=== PATIENT | male | born 1985 | race Hispanic/Latino ===

== ENCOUNTER 2024-07-02 16:15 | Inpatient (IN) | payer OTHER ==
[2024-07-02] MEDS ORDERED: ONDANSETRON 4 MG/2 ML VIAL ONE ×2 (17:05→20:38)
[2024-07-02] MEDS ORDERED: MORPHINE 4 MG/ML SYR ONE (17:05)
[2024-07-02] MEDS ORDERED: NA CHLORIDE 0.9% 1,000 ML ONE (17:05)
[2024-07-02 17:12] LABS: Absolute Lymphocytes (CBC) 0.5 K/uL (0.7-4.9); Absolute Monocytes 0.4 K/uL (0.1-1.3); Absolute Neutrophil 11.3 K/uL (1.8-8.0); Basophils % 0.1 % (0-1.3); Hematocrit 43.5 % (39.6-49.0); Hemoglobin 14.8 g/dL (13.6-17.9); Lymphocytes % 4.4 % (15.3-44.8); MCH 31.8 pg (27.0-35.0); MCHC 34.1 g/dL (32.0-36.0); MCV 93.3 fL (80-100); MPV 7.6 fL (7.6-11.3); Monocytes % 3.2 % (3.3-12.3); Neutrophils % 92.3 % (41.7-73.7); Platelets 234 thou/uL (152-406); RBC Red Blood Cell Count 4.66 M/uL (4.33-5.43); Red Cell Distribution Width 13.1 % (12.1-15.2)
--- NOTE | 2024-07-02 17:25 | RAD REPORT ---
Abdomen Exam Limited: 07/02/2024 5:13 PM CLINICAL HISTORY: Abdominal pain. STUDY: Limited right upper quadrant ultrasound of abdomen. COMPARISON: None. FINDINGS: The gallbladder is distended with a stone at the gallbladder neck. A positive sonographic Hernandez's si gn is noted. The common bile duct is normal in caliber at 4 mm. The gallbladder wall is normal in caliber. IMPRESSION: Cholelithiasis with stone impacted at the gallbladder neck and positive sonographic Hernandez sign. The gallbladder wall is normal in thickness, these findings remain concerning for early acute cholecystitis.
[2024-07-02 17:26] LABS: Albumin 3.9 g/dL (3.4-5.0); Albumin/Globulin Ratio 1.1 (1.1-1.8); Anion Gap 9.7 mEq/L (5.0-15.0); Bilirubin Total 0.7 mg/dL (0.2-1.0); Globulin 3.4 g/dL (2.3-3.5); Potassium 3.7 mEq/L (3.5-5.1); Protein, Total 7.3 g/dL (6.4-8.2)
--- NOTE | 2024-07-02 17:50 | RAD REPORT ---
EXAMINATION: CT ABDOMEN AND PELVIS WITH CONTRAST CLINICAL INDICATION: Male, 39 years old. Right upper quadrant right lower quadrant tenderness to palp ation TECHNIQUE: CT abdomen and pelvis was performed, after the administration of IV contrast, as [facility]. Axial, sagittal and coronal reconstructions were obtained. One or more of the following dose reduction techniques were used: Automated exposure control, adjustment of the mA and/o r kV according to patient size, and/or iterative reconstruction. Unless otherwise specified, incidental findings do not require dedicated imaging follow-up. [id number]. COMPARISON: Same day ultrasound FINDINGS: LOWER CHEST: The visualized lung bases are clear. LIVER: Hepatic steatosis. GALLBLADDER/BILE DUCT: Distended gallbladder with stone near the gallbladder neck. Common bile duct i s normal in caliber.?No pericholecystic inflammatory changes are identified. PANCREAS: No mass, ductal dilation, or josé miguel-pancreatic fluid. SPLEEN: Normal size. No focal lesion. ADRENALS: Normal; no mass. KIDNEYS AND URETERS: Normal size and contour. No hydronephrosis. URINARY BLADDER: Normal contour. GASTROINTESTINAL TRACT: Stomach is non-dilated. Small bowel has normal course and caliber. No colonic wall thickening or pericolonic inflammatory changes. Normal appendix. PERITONEUM: No ascites. LYMPH NODES: No lymphadenopathy. ABDOMINAL AORTA AND OTHER VESSELS: Normal caliber aorta and IVC. REPRODUCTIVE ORGANS: No pathologic process MUSCULOSKELETAL: No acute or suspicious osseous abnormality. ADDITIONAL FINDINGS: None. IMPRESSION: Distended gallbladder with stone at the gallbladder neck. Though no pericholecystic inflammatory holcomb ges are present, this still could represent early or mild acute cholecystitis. The common bile duct is normal caliber.
--- NOTE | 2024-07-02 17:57 | ER ---
Nurse's Notes [facility] Name: Branden Gregorio Age: 39 yrs Sex: Male : 1985 Arrival Date: 07/02/2024 Time: 16:15 Bed 14 Private MD: Diagnosis: Cholecystitis, unspecified Presentation: 07/02 16:23 Chief complaint: Patient states: epigastric pain that began this morning, reports aa5 nausea and vomiting. Coronavirus screen: nausea, vomiting. Ebola Screen: Patient denies travel to an Ebola-affected area in the 21 days before illness onset. Initial Sepsis Screen: Does the patient meet any 2 criteria? No. Patient's initial sepsis screen is negative. Does the patient have a suspected source of infection? No. Patient's initial sepsis screen is negative. Risk Assessment: Do you want to hurt yourself or someone else? Patient reports no desire to harm self or others. Onset of symptoms was June 2024. 16:23 Acuity: SHAYLEE 3 aa5 16:23 Method Of Arrival: Ambulatory aa5 Historical: - Allergies: 16:25 No Known Allergies; aa5 - Home Meds: 16:25 None [Active]; aa5 - PMHx: 16:25 None; aa5 - PSHx: 16:25 None; aa5 - Immunization history:: Adult Immunizations unknown. - Infectious Disease History:: Denies. - Social history:: Smoking status: Patient denies any tobacco usage or history of. Screenin:33 Abuse screen: Denies threats or abuse. Denies injuries from another. Nutritional ph screening: No deficits noted. Tuberculosis screening: No symptoms or risk factors identified. 19:15 [facility] ED Fall Risk Assessment (Adult) History of falling in the last 3 months, rg5 including since admission No falls in past 3 months (0 pts) Confusion or Disorientation No (0 pts) Intoxicated or Sedated No (0 pts) Impaired Gait No (0 pts) Mobility Assist Device Used No (0 pt) Altered Elimination No (0 pt) Score/Fall Risk Level 0 - 2 = Low Risk Oriented to surroundings, Maintained a safe environment, Hourly rounding (assess needs \T\ fall precautionary measures) done. Assessment: 18:31 General: Appears in no apparent distress. uncomfortable, Behavior is calm, cooperative, ph appropriate for age. Pain: Complains of pain in epigastric area and right upper quadrant Pain radiates to back. Neuro: Level of Consciousness is awake, alert, obeys commands, Oriented to person, place, time, situation. Cardiovascular: Capillary refill < 3 seconds in bilateral fingers Patient's skin is warm and dry. Respiratory: Airway is patent Respiratory effort is even, unlabored, Respiratory pattern is regular, symmetrical. GI: Abd is soft X 4 quads Abdomen is tender to palpation in right upper quadrant. GI: Reports diarrhea, nausea, vomiting. Derm: Skin is pink, warm \T\ dry. 19:30 Reassessment: Patient and/or family updated on plan of care and expected duration. Pain rg5 level reassessed. Patient is alert, oriented x 3, equal unlabored respirations, skin warm/dry/pink. 19:30 GI: Abdomen is round non-distended, Bowel sounds present in left upper quadrant Reports rg5 lower abdominal pain, upper abdominal pain, Pain is 8 out of 10 on a pain scale. : No signs and/or symptoms were reported regarding the genitourinary system. EENT: No signs and/or symptoms were reported regarding the EENT system. Derm: Skin is intact, Skin temperature is warm. Musculoskeletal: Range of motion: intact in all extremities. 20:00 Reassessment: No changes from previously documented assessment. Patient and/or family rg5 updated on plan of care and expected duration. Pain level reassessed. Patient is alert, oriented x 3, equal unlabored respirations, skin warm/dry/pink. 21:06 Reassessment: No changes from previously documented assessment. Patient and/or family rg5 updated on plan of care and expected duration. Pain level reassessed. Patient is alert, oriented x 3, equal unlabored respirations, skin warm/dry/pink. Vital Signs: 16:23 BP 135 / 79; Pulse 79; Resp 18 S; Temp 97.5(TE); Pulse Ox 100% on R/A; Weight 81.65 kg aa5 (R); Height 5 ft. 7 in. (R); 18:32 BP 118 / 76; Pulse 72; Resp 18; Pulse Ox 100% on R/A; ph 19:30 BP 124 / 79; Pulse 92; Resp 18; Temp 98.3(O); Pulse Ox 99% ; Pain 8/10; rg5 20:35 BP 122 / 82; Pulse 89; Resp 17; Pulse Ox 99% ; Pain 8/10; rg5 16:23 Body Mass Index 28.19 (81.65 kg, 170.18 cm) aa5 19:30 Pain Scale: Adult rg5 20:35 Pain Scale: Adult rg5 ED Course: 16:16 Patient arrived in ED. im 16:17 Yousuf Watson MD is Attending Physician. ec2 16:23 Arm band placed on. aa5 16:24 Triage completed. aa5 16:39 Ramonita Chappell, RN is Primary Nurse. ph 17:15 Abdomen Limited US In Process Unspecified. EDMS 17:35 CT Abd/Pelvis - IV Contrast Only In Process Unspecified. EDMS 17:56 Meng Aguilar MD is Hospitalizing Provider. ec2 18:01 Prince Arellano MD is Hospitalizing Provider. ec2 18:30 Initial lab(s) drawn, by me, sent to lab. Missed attempt(s): 22 gauge in right ph antecubital area. Bleeding controlled, band aid applied, catheter tip intact. Inserted saline lock: 22 gauge in left antecubital area, using aseptic technique. Blood collected. Flushed with 10 mL NS. 18:33 Patient has correct armband on for positive identification. Placed in gown. Bed in low ph position. Call light in reach. Side rails up X 1. Pulse ox on. NIBP on. 19:15 Awaiting bed assignment. rg5 19:15 Provided Education on: need for admit. rg5 19:15 No provider procedures requiring assistance completed. Patient admitted, IV remains in rg5 place. intact, No redness/swelling at site. Administered Medications: 17:05 Drug: NS 0.9% IV 1000 ml IV at 1 bolus Per protocol; 1000 mL bolus Route: IV; Rate: 1 ph bolus; Site: left antecubital; 18:15 Follow up: Response: No adverse reaction; IV Status: Completed infusion; IV Intake: hb 1000ml 17:05 Drug: Ondansetron IVP 4 mg IVP once; over 2 minutes Route: IVP; Site: left antecubital; ph 19:20 Follow up: Response: No adverse reaction hb 17:05 Drug: morphine IVP or IV 4 mg IVP once over 4 mins Route: IVP; Infused Over: 4 mins; ph Site: left antecubital; 17:30 Follow up: Response: No adverse reaction; Pain is unchanged, physician notified; RASS: hb Alert and Calm (0) 18:28 Drug: Piperacillin-Tazobactam IVPB 3.375 grams IVPB once over 60 mins; (mix in NS 100 ph mL) Route: IVPB; Infused Over: 60 mins; Site: left antecubital; 19:00 Follow up: Response: No adverse reaction; IV Status: Completed infusion; IV Intake: hb 100ml 18:28 Drug: fentaNYL (PF) IVP 100 mcg IVP once Route: IVP; Site: left antecubital; ph 19:19 Follow up: Response: No adverse reaction; Pain is decreased; RASS: Drowsy (-1) hb 20:43 Drug: HYDROmorphone IVP 1 mg IVP once Route: IVP; Site: left antecubital; lg3 20:43 Drug: Ondansetron IVP 4 mg IVP once; over 2 minutes Route: IVP; Site: left antecubital; lg3 Medication: 19:10 VIS not applicable for this client. rg5 Intake: 18:15 IV: 1000ml; Total: 1000ml. hb 19:00 IV: 100ml; Total: 1100ml. hb Outcome: 17:56 Decision to Hospitalize by Provider. ec2 21:06 Admitted to ER Hold. Please see [facility] for further documentation. rg5 21:06 Condition: stable 21:06 Instructed on the need for admit, 07/03 00:21 Patient left the ED. rg5 Signatures: Dispatcher [employer] Emily Gerber RN RN aa5 Ramonita Chappell RN RN Tila Blakely RN RN hb Able, Lacie, RN RN lg3 Shobha Grace Edwin, MD MD ec2 Yogesh Uribe RN RN rg5 Corrections: (The following items were deleted from the chart) 07/02 18:30 17:29 NS 0.9% IV 1000 ml IV at 1 bolus in left antecubital ph ph
--- NOTE | 2024-07-02 17:57 | EDPHYS ---
Physician Documentation [facility] Name: Branden Gregorio Age: 39 yrs Sex: Male : 1985 Arrival Date: 07/02/2024 Time: 16:15 Bed 14 Private MD: ED Physician Yousuf Watson HPI: 07/02 16:30 This 39 yrs old Male presents to ER via Ambulatory with complaints of ec2 Abdominal Pain, Vomiting. 16:30 Patient arrives today for evaluation of abdominal pain. Patient reports that he has ec2 been experiencing upper abdominal pain since earlier this morning. History of gallstones. Some nausea and vomiting. No previous abdominal surgeries. No urinary complaints.. Historical: - Allergies: 16:25 No Known Allergies; aa5 - Home Meds: 16:25 None [Active]; aa5 - PMHx: 16:25 None; aa5 - PSHx: 16:25 None; aa5 - Immunization history:: Adult Immunizations unknown. - Infectious Disease History:: Denies. - Social history:: Smoking status: Patient denies any tobacco usage or history of. ROS: 16:30 Constitutional: as per hpi ec2 Exam: 16:30 Constitutional: GEN: NAD Head: atraumatic Eyes: EOMI Ears: External ears are ec2 normal. CV: regular rate LUNGS: no respiratory distress ABD: non-distended, soft, tender in the right upper and right lower quadrant. Not guarding, not rigid SKIN: no evidence of rashes MSK: no evidence of trauma Vital Signs: 16:23 BP 135 / 79; Pulse 79; Resp 18 S; Temp 97.5(TE); Pulse Ox 100% on R/A; Weight 81.65 kg aa5 (R); Height 5 ft. 7 in. (R); 18:32 BP 118 / 76; Pulse 72; Resp 18; Pulse Ox 100% on R/A; ph 19:30 BP 124 / 79; Pulse 92; Resp 18; Temp 98.3(O); Pulse Ox 99% ; Pain 8/10; rg5 20:35 BP 122 / 82; Pulse 89; Resp 17; Pulse Ox 99% ; Pain 8/10; rg5 16:23 Body Mass Index 28.19 (81.65 kg, 170.18 cm) aa5 19:30 Pain Scale: Adult rg5 20:35 Pain Scale: Adult rg5 MDM: 16:20 Patient medically screened. ec2 16:30 Data reviewed: vital signs. ED course: Patient arrives today for evaluation of ec2 right-sided abdominal pain. Examination remarkable for abdominal findings as noted above. Will obtain lab work, CT imaging, ultrasonography. Differential includes cholelithiasis, cholecystitis, appendicitis.. 17:31 ED course: CBC shows slight leukocytosis. Metabolic profile reassuring. Lipase within ec2 normal ranges. Ultrasound shows cholelithiasis, possible early cholecystitis. . 17:53 ED course: On reassessment patient with improvement in pain, patient with slight ec2 leukocytosis, still a bit uncomfortable, discussed case with the general surgeon, who will consult, plan to keep n.p.o. after midnight. Discussed case with hospitalist, pending admission.. 07/02 16:30 Order name: CBC with Diff; Complete Time: 20:37 ec2 07/02 16:30 Order name: CMP; Complete Time: 17:31 ec2 07/02 16:30 Order name: Lipase; Complete Time: 17:31 ec2 07/02 17:32 Order name: CBC Smear Scan; Complete Time: 20:37 EDMS 07/02 18:26 Order name: Urinalysis w/ reflexes EDMS 07/02 18:27 Order name: CBC with Automated Diff EDMS 07/02 18:27 Order name: CBC with Automated Diff EDMS 07/02 18:27 Order name: CBC with Automated Diff EDMS 07/02 18:27 Order name: CBC with Automated Diff EDMS 07/02 21:18 Order name: Lactate w/ 2H reflex if indic. EDMS 07/02 16:30 Order name: Abdomen Limited US; Complete Time: 17:31 ec2 07/02 16:30 Order name: CT Abd/Pelvis - IV Contrast Only; Complete Time: 17:51 ec2 07/02 16:30 Order name: IV Saline Lock; Complete Time: 18:29 ec2 07/02 16:30 Order name: Labs collected and sent; Complete Time: 18:29 ec2 07/02 16:30 Order name: NPO; Complete Time: 18:29 ec2 Administered Medications: 17:05 Drug: NS 0.9% IV 1000 ml IV at 1 bolus Per protocol; 1000 mL bolus Route: IV; Rate: 1 ph bolus; Site: left antecubital; 18:15 Follow up: Response: No adverse reaction; IV Status: Completed infusion; IV Intake: hb 1000ml 17:05 Drug: Ondansetron IVP 4 mg IVP once; over 2 minutes Route: IVP; Site: left antecubital; ph 19:20 Follow up: Response: No adverse reaction hb 17:05 Drug: morphine IVP or IV 4 mg IVP once over 4 mins Route: IVP; Infused Over: 4 mins; ph Site: left antecubital; 17:30 Follow up: Response: No adverse reaction; Pain is unchanged, physician notified; RASS: hb Alert and Calm (0) 18:28 Drug: Piperacillin-Tazobactam IVPB 3.375 grams IVPB once over 60 mins; (mix in NS 100 ph mL) Route: IVPB; Infused Over: 60 mins; Site: left antecubital; 19:00 Follow up: Response: No adverse reaction; IV Status: Completed infusion; IV Intake: hb 100ml 18:28 Drug: fentaNYL (PF) IVP 100 mcg IVP once Route: IVP; Site: left antecubital; ph 19:19 Follow up: Response: No adverse reaction; Pain is decreased; RASS: Drowsy (-1) hb 20:43 Drug: HYDROmorphone IVP 1 mg IVP once Route: IVP; Site: left antecubital; lg3 20:43 Drug: Ondansetron IVP 4 mg IVP once; over 2 minutes Route: IVP; Site: left antecubital; lg3 Disposition Summary: 07/02/24 17:56 Hospitalization Ordered Notes: Hospitalization Status: Inpatient Admission ec2 Condition: Stable ec2 Problem: new ec2 Symptoms: have improved ec2 Bed/Room Type: Standard ec2 Provider: Prince Adan(07/02/24 18:01) ec2 Location: Intensive Care Unit(07/02/24 23:35) cg Room Assignment: 5-(07/02/24 23:35) cg Diagnosis - Cholecystitis, unspecified ec2 Forms: - Medication Reconciliation Form ec2 - SBAR form ec2 - Leadership Thank You Letter ec2 Signatures: Dispatcher [employer] Buster Garcia MD MD cha Calderon, Audri, RN RN aa5 Ramonita Chappell, RN RN Radha Castellanos, RN RN Teodora Plummer RN RN lg3 Yousuf Watson MD MD 2 Tila Blakely RN Corrections: (The following items were deleted from the chart) 18:01 17:56 Meng Aguilar ec2 ec2 20:59 17:56 Telemetry/MedSurg (Inpatient) ec2 cg 20:59 17:56 ec2 cg 23:35 20:59 [facility] [[email or web address]] ER HOLD cg cg 23:35 20:59 ERHOLD- cg cg
[2024-07-02] MEDS ORDERED: FENTANYL CITR 100 MCG/2 ML ONE (18:10)
[2024-07-02] MEDS ORDERED: NA CHLORIDE 0.9% 100 ML ONE (18:10)
[2024-07-02] MEDS ORDERED: PIPERACIL/TAZO 3.375 GM VIAL IV ONE (18:10)
[2024-07-02] MEDS ORDERED: ONDANSETRON 4 MG/2 ML VIAL IV PRN (18:21)
[2024-07-02] MEDS ORDERED: ACETAMINOPHEN 325 MG TABLET PO PRN (18:21)
[2024-07-02] MEDS: PANTOPRAZOLE 40 MG INJ IVP SCH (18:24)
[2024-07-02] MEDS ORDERED: SODIUM CHLORIDE 0.9% 10ML INJ IV PRN (18:24)
[2024-07-02 18:28] LABS: Blood Morphology Comment NOT SEEN (NOT SEEN); Platelet Estimate ADEQ; White Blood Cell Scan OK (OK)
--- NOTE | 2024-07-02 18:31 | P.HP ---
Certification for Inpatient Patient admitted to: Observation With expected LOS: <2 Midnights Practitioner: I am a practitioner with admitting privileges, knowledge of patient current condition, hospital course, and medical plan of care. Services: Services provided to patient in accordance with Admission requirements found in Title 42 Section 412.3 of the Code of Federal Regulations Patient History Date of Service: 07/02/24 Reason for admission: abdominal pain History of Present Illness: Patient is a 39 year old male with a PMH of seasonal allergy and GERD. He presents to the ER with acutely worsening epigastric abdominal pain radiating to his RUQ region. He has sonographic evidence of acute calculous cholecystitis with stone impacted at the gallbladder neck. He is being admitted for surgical evaluation. WBC 12K on admission. The rest of his labs are unremarkable. Physical Examination - Physical Exam General: Acute distress HEENT: Atraumatic, Normocephalic Respiratory: Clear to auscultation bilaterally, Normal air movement Cardiovascular: No edema, Normal pulses, Regular rate/rhythm, Normal S1 S2 Gastrointestinal: Tenderness (epigastric tenderness) Neurological: Normal speech - Studies Laboratory Data (last 24 hrs) 07/02/24 07/02/24 17:00 17:00 WBC 12.20 H Hgb 14.8 Hct 43.5 Plt Count 234 Sodium 137 Potassium 3.7 BUN 15 Creatinine 0.91 Glucose 124 H Total Bilirubin 0.7 AST 16 ALT 22 Alkaline Phosphatase 57 Lipase 34 Assessment and Plan - Problems (Diagnosis) (1) Acute calculous cholecystitis Current Visit: Yes Status: Acute (2) GERD (gastroesophageal reflux disease) Current Visit: Yes Status: Acute (3) Seasonal allergies Current Visit: Yes Status: Acute - Plan Assessment Patient is a 39 year old male without significant PMH except for GERD. He is being admitted for acute calculous cholecystitis after he presented with epigastric abdominla pain radiatign to his RUQ region. He is not septic. Acute calculous cholecystitis GERD PLAN: Admit under observation Start patient on zosyn and IV fluid Will also place on PPI and anti-emetics General surgery consulted for cholecystectomy Patient is full code - Advance Directives Does patient have a Living Will: No Does patient have a Durable POA for Healthcare: No
[2024-07-02] MEDS ORDERED: HYDROMORPHONE HCL 1 MG/ML INJ ONE (20:39)
[2024-07-02] MEDS ORDERED: PANTOPRAZOLE 40 MG INJ ONE (22:01)
[2024-07-03] MEDS: D5 0.45 NS 1,000 ML IV SCH (00:44)
[2024-07-03] MEDS: PIPER TAZO 3.375 GM in NA CHLORIDE 0.9% 100 ML IV SCH (00:47)
[2024-07-03] MEDS: HYDROMORPHONE HCL 1 MG/ML INJ IV PRN (01:18)
[2024-07-03 04:46] VITALS: BMI 29.0
--- NOTE | 2024-07-03 06:50 | P.PN ---
Date of Service: 07/03/24 seen on rounds early this morning Subjective: continues with RUQ/epigastric pain, nausea; but not as severe as last night had similar episode few weeks ago with some pain, n/v. Took a pepcid and went away after a few hours no vomiting since arrival to ED low grade temps overnight, +Chills ROS: 10 point ROS as noted above, otherwise negative Physical Exam: GEN: Alert, oriented, appears uncomfortable HEENT: Normal conjunctiva, sclera anicteric CV: sinus tachycardia, no edema Pulm: Nonlabored respirations on room air, clear bilaterally ABD: Soft, moderate RUQ/epigastric tenderness, non-distended vitals reviewed Problem List: Acute calculous cholecystitis GERD Hx seasonal allergies Acute calculous cholecystitis On admission, presents with epigastric / RUQ pain associated with na usea/vomiting for ~1 day Abdominal u/s (07/02): Cholelithiasis with impacted stone at gallbladder neck. +Hernandez sign. CT abdomen (07/02): Distended gallbladder with stone at gallbladder neck. No pericholecystic inflammatory changes. Normal common bile duct. Dr. Aguilar, general surgeon, consulted to eval NPO for now until eval by surgery anticipate lap lopez today continue empiric zosyn (07/03-) continue IV protonix PRN zofran continue IVF anticipate given patient's symptoms and clinical picture, will need to stay in hospital at least one more day will change to inpatient GERD Hx seasonal allergies confirm home meds, restart as appropriate VTE: Lovenox Code: Full Dispo: Home, ~1-2 days Pending surgical recs Time Spent Managing Pts Care (In Minutes): 41
[2024-07-03 07:48] LABS: Absolute Lymphocytes (CBC) 0.8 K/uL (0.7-4.9); Absolute Monocytes 1.2 K/uL (0.1-1.3); Absolute Neutrophil 10.6 K/uL (1.8-8.0); Basophils % 0.3 % (0-1.3); Eosinophils % 0.1 % (0-4.4); Hematocrit 42.9 % (39.6-49.0); Hemoglobin 14.8 g/dL (13.6-17.9); Lymphocytes % 6.4 % (15.3-44.8); MCH 31.9 pg (27.0-35.0); MCHC 34.4 g/dL (32.0-36.0); MCV 92.7 fL (80-100); MPV 7.8 fL (7.6-11.3); Monocytes % 9.6 % (3.3-12.3); Neutrophils % 83.6 % (41.7-73.7); Platelets 222 thou/uL (152-406); RBC Red Blood Cell Count 4.63 M/uL (4.33-5.43); Red Cell Distribution Width 12.9 % (12.1-15.2)
[2024-07-03] MEDS: MORPHINE 2 MG/ML SYR IV PRN (07:57)
[2024-07-03 07:58] LABS: Anion Gap 9.6 mEq/L (5.0-15.0); Potassium 3.6 mEq/L (3.5-5.1)
[2024-07-03] MEDS: ENOXAPARIN 40 MG/0.4 ML SQ SCH (09:00)
[2024-07-03 10:59] LABS: Specific Gravity 1.028 (1.005-1.030); Sqamous Epithelial None Seen /HPF (None Seen); Urine Bacteria None Seen /HPF (<20); Urine Bilirubin NEGATIVE (Negative); Urine Blood Negative (Negative); Urine Clarity Clear (Clear); Urine Color Yellow (Yellow); Urine Culture Reflex Order NOT NEEDED; Urine Glucose NEGATIVE (Negative); Urine Ketones 1+ (Negative); Urine Microscopic Reflex YN ORDER UMIC; Urine Mucus Slight /HPF (None Seen); Urine Nitrite NEGATIVE (Negative); Urine Protein TRACE (Negative); Urine RBC <5 /HPF (None Seen); Urine Urobilinogen Normal (Normal); Urine WBC <5 /HPF (<5)
[2024-07-03] MEDS ORDERED: Ringers Lactate 1,000 ML IV ONE ×2 (11:14→13:14)
--- NOTE | 2024-07-03 11:41 | CON ---
Date of Consultation: 07/03/2024 Brief Hpi: The patient is a 39-year-old male with past medical history of seasonal allergie s and GERD, who presents to hospital with approximately 1 year history of epigastric right upper quad rant pain. He states that it has been intermittent and relapsing over the course of the last year, w hich was postprandial predominantly. There was radiation to the right upper quadrant and as of last night, he developed significant pain. He went to work and thought it would resolve; however, he took some [id number] hyperacidity medications without any significant improvement. The pain contin ued to be worse and as such he came to the emergency room with the above-stated complaints. Past Medical History: Seasonal allergies and GERD. Past Surgical History: Denies. Allergies: NO KNOWN DRUG ALLERGIES. Home Medications: None. Social History: He denies smoking, alcohol, recreational drug use. Review of Systems: Ten-point review of systems other than HPI, denies. Physical Examination: General: He is awake, alert, oriented. Psychiatric: He is appropriate, conversive. HEENT: Normocephalic. Sclerae anicteric. Mucous membranes are moist. Oropharynx clear. Neck: Supple without JVD. Chest: Normal expansion and excursion. Cardiovascular: Regular rate and rhythm. Pulmonary: Clear to auscultation bilaterally. Abdomen: Soft with mild epigastric and right upper quadrant tenderness to palpation. Positive Skylar y sign. Positive rebound. Mild guarding. The remainder of abdominal exam is unremarkable. Extremities: No clubbing, cyanosis, edema. Skin: Warm and dry. Vital Signs: Blood pressure 119/45, pulse 105, respiratory rate 13, temperature 98.6, SpO2 99% on ro om air. Laboratory Data: Revealed a white blood count 12.7, hemoglobin 14.8, hematocrit 42.9, platelet count was 222. Neutrophils are 83%. His sodium 135, potassium 2.6, chloride 104, carbon dioxide is 25, B UN 10, creatinine is 0.87, glucose is 136, total bilirubin was 0.7 on admission, AST 16, ALT 20, sho line phosphatase is 57, lipase is 34. He had imaging performed, which included a CT of the abdomen a nd pelvis, which was officially read as distended gallbladder with stone at the gallbladder neck. No pericholecystic inflammatory changes present. It could represent early or mild acute cholecystitis. Common bile duct is normal in diameter. He additionally had an ultrasound of his abdomen, which wa s officially read as cholelithiasis with a stone impacted in the gallbladder neck. Positive sonograp hic Hernandez sign. Gallbladder wall is normal thickness. It remain concerning for acute early cholecy stitis. Assessment And Plan: This is a 39-year-old male who presents with signs and symptoms of early acute calculous cholecystitis. 1.IV fluid hydration. 2.Antibiotic coverage. 3.I have explained the risks, benefits, and alternatives of laparoscopic cholecystectomy with the In docyanine green and possible catheter cholangiography, including but not limited to bleeding, infecti on, damage to surrounding tissues, injury to bile ducts, intestines, need for further operation proce dures, blood clots, heart attack, strokes, other unforeseen complications of perioperative period. T he patient displayed understanding of the above-stated plan and agreed to proceed as indicated. MAXWELL/VEDA Voice ID: [id number] Report ID: [id number]
[2024-07-03] MEDS ORDERED: ROCURONIUM 50 MG/5 ML VIAL IV ONE (11:47)
[2024-07-03] MEDS ORDERED: propofoL 200 MG/20 ML VIAL IV ONE (11:47)
[2024-07-03] MEDS ORDERED: FENTANYL CITR 100 MCG/2 ML ONE (11:47)
[2024-07-03] MEDS ORDERED: MIDAZOLAM HCL 2 MG/2 ML INJ ONE ×2 (11:49→12:12)
[2024-07-03] MEDS ORDERED: KETOROLAC 30 MG/ML INJ ONE (11:50)
[2024-07-03] MEDS ORDERED: LIDOCAINE 1% MPF 5 ML VIAL ONE (11:50)
[2024-07-03] MEDS ORDERED: dexAMETHasone 4 MG/ML VIAL ONE (11:50)
[2024-07-03] MEDS ORDERED: ONDANSETRON 4 MG/2 ML VIAL ONE (11:50)
[2024-07-03] MEDS ORDERED: SUGAMMADEX SODIUM 200 MG/2 ML VIAL IV ONE (12:11)
[2024-07-03] MEDS ORDERED: LIDOCAINE HCL/EPINEPHRINE 20 ML MDV ONE (12:12)
--- NOTE | 2024-07-03 13:57 | P.OP ---
Preoperative diagnosis: Acute Calculous Cholecystitis Postoperative diagnosis: Acute Calculous Cholecystitis Primary procedure: Laparoscopic Cholecystectomy with ICG Anesthesia: GETA + Local Estimated blood loss: <10cc Specimen: Gallbladder Findings: Hydrops, Distended, Adhesions, Accessor Cystic Art Complications: None Implants: Dora Hemostatic Powder Transferred to: Recovery Room Condition: Good
[2024-07-03] MEDS ORDERED: HYDROCODONE/APAP 5/325 MG TAB PO PRN (14:09)
[2024-07-03] MEDS ORDERED: HYDROMORPHONE HCL 1 MG/ML INJ ONE (14:45)
[2024-07-03 15:01] VITALS: O2SAT 96
--- NOTE | 2024-07-03 22:53 | OP ---
Date of Procedure: 07/03/2024 Surgeon: Greg Aguilar MD, Preoperative Diagnosis: Acute calculous cholecystitis. Postoperative Diagnosis: Acute calculous cholecystitis. Procedure Performed: Laparoscopic cholecystectomy with indocyanine green cholangiography. Anesthesia: General endotracheal plus local 1% lidocaine with epinephrine. Estimated Blood Loss: 10 cc. Specimen: Gallbladder. Findings: Hydropic gallbladder, which was distended, significant adhesions over the anterior surface of the gallbladder and accessory cystic artery coming off the branch of the right hepatic. Complications: None. Implants: Dora hemostatic powder. Disposition: The patient was transferred to recovery room in good condition. Procedure In Detail: After informed consent was obtained, patient was brought to the operating room, prepped and draped in the usual sterile fashion after adequate anesthesia was achieved. I anestheti zed an area in the supraumbilical position down to subcutaneous tissues. A 5 mm 0 degree optical tro car was introduced in the abdomen without incident or complication. Insufflation was obtained to 15 mmHg at this time. No injury to vital structures upon entering the abdomen. 2 additional trocars we re placed, 1 in the epigastrium and 1 in the right upper quadrant. Both of these were the similarly anesthetized and sharply incised. A 5 mm trocar was placed under direct visualization without incide nt or complication. The umbilical trocar was then upsized to a 12 mm under direct visualization with out incident or complication. The patient was positioned head up, right-side up position. Attempts to grasp the gallbladder were unsuccessful as such decompression needle was brought in, used to decom press the gallbladder at the fundus of the gallbladder without incident or complication. The gallbla dder then became manageable for manipulation and grasping. At this point, I positioned the gallbladd er towards the patient's right shoulder, dissected down to continued to remove significant adhesions off the anterior surface of the gallbladder between the omentum as well as near the duodenum down dudley r the Mike pouch of the gallbladder. After this was dissected free, I ultimately removed a signi ficant amount of inflammatory tissue using a combination of electrocautery as well as blunt dissectio n through an obviously hydropic inflamed area. 3 structures were identified at this point, one was t he cystic duct also confirmed with the indocyanine green cholangiography at the confluence of the cys tic common duct junction, found to be in normal anatomic position. However, the cystic artery appear ed to have 2 branches on it and an accessory branch and the disk was dissected circumferentially down and skeletonized back to its origin. At this point, the structures were encircled. It was found to be only going to the gallbladder. These structures were doubly titanium clipped on the proximal india e and singly on the distal side of both the cystic duct and cystic arteries. At this point, the stru ctures were ligated between Endo Feng without incident or complication. The gallbladder was remove d with the hepatic fossa. The hepatic fossa did require little additional fulguration as there was a hydropic appearance of the gallbladder. At this point, the gallbladder was placed in EndoCatch bag and removed through the umbilical trocar site. A final examination was then performed with indocyani ne green cholangiography showed no leakage of bile at the end of the procedure. The bile was flowing in normal anatomic position through the common duct. At this point, the area was copiously irrigate d. No additional hemostat was required. After minimal fulguration of the hepatic fossa, the area wa s irrigated, suctioned out completely dry, and I sprayed Dora hemostatic powder into the subhepatic space in the hepatic fossa bed. No bleeding was appreciated at the end of the procedure. Under dillan ufflation pressure, this was verified. At this point, I placed the patient in the neutral position. Then, closed 12 mm trocar site using a Reece-Astrid suture passer with an 0 Vicryl in an interrup greg fashion with good approximation of tissues. The abdomen was desufflated under direct visualizati on without incident or complication. All remaining trocars were removed. All skin incisions were th en copiously irrigated and closed with a 4-0 Monocryl in a running fashion. Dermabond was placed ove r top. The patient tolerated the procedure well without incident or complication, and transferred to PACU in good condition. All counts were correct at the end of the case. MAXWELL/VEDA Voice ID: [id number] Report ID: [id number]
[2024-07-04 08:06] LABS: Absolute Lymphocytes (CBC) 1.1 K/uL (0.7-4.9); Absolute Monocytes 0.7 K/uL (0.1-1.3); Absolute Neutrophil 5.9 K/uL (1.8-8.0); Basophils % 0.4 % (0-1.3); Eosinophils % 0.3 % (0-4.4); Hematocrit 37.9 % (39.6-49.0); Hemoglobin 13.1 g/dL (13.6-17.9); Lymphocytes % 14.6 % (15.3-44.8); MCH 32.5 pg (27.0-35.0); MCHC 34.6 g/dL (32.0-36.0); MCV 94.1 fL (80-100); Neutrophils % 75.7 % (41.7-73.7); Platelets 170 thou/uL (152-406); RBC Red Blood Cell Count 4.03 M/uL (4.33-5.43); Red Cell Distribution Width 12.6 % (12.1-15.2)
[2024-07-04 08:20] LABS: Albumin 2.9 g/dL (3.4-5.0); Albumin/Globulin Ratio 0.9 (1.1-1.8); Anion Gap 6.5 mEq/L (5.0-15.0); Bilirubin Total 0.8 mg/dL (0.2-1.0); Globulin 3.2 g/dL (2.3-3.5); Potassium 3.5 mEq/L (3.5-5.1); Protein, Total 6.1 g/dL (6.4-8.2)
--- NOTE | 2024-07-04 11:57 | P.DS ---
Admission Date: 07/03/24 Discharge Date: 07/04/24 Disposition: ROUTINE DISCHARGE Discharge Condition: GOOD Reason for Admission: abdominal pain Consultations: General surgery - Dr. Aguilar Brief History of Present Illness: 39 yo M, PMH: seasonal allergy and GERD. Patient presents to the ER with acutely worsening epigastric abdominal pain radiating to his RUQ region. He has sonographic evidence of acute calculous cholecystitis with stone impacted at the gallbladder neck. He is being admitted for surgical evaluation. WBC 12K on admission. The rest of his labs are unremarkable. Hospital Course: Problem List: Acute calculous cholecystitis GERD Hx seasonal allergies Physician discharge instructions: Patient presented with epigastric / RUQ pain associated with nausea/vomiting for ~1 day secondary to acute calculous cholecystitis. He was evaluated by Dr. Aguilar, general surgeon, and underwent laparoscopic cholecystectomy with IGC. Found to have distended hydropic gallbladder with significant adhesions. Patient did well post-operatively, was feeling better, pain improving, nausea/vomiting resolved, and was deemed stable for discharge. Patient is to complete 4 more days of Augmentin on discharge for a total of 5 days. Follow up with Dr. Aguilar in office on as previously discussed for further management. LFTs were noted to be mildly elevated post-operatively. Suspect reactive to recent surgery. Advised to repeat blood work in ~1 week to ensure resolution/improvement of LFTs. LFTs on admission -> discharge: AST 16 -> 49 ALT 22 -> 112 T.bili and ALKPhos remained within normal limits throughout hospitalization. Medications: Augmentin x4 more days [place] 5/325 as needed for pain Follow up: PCP 3-[address] Aguilar in office on as previously discussed. please call to schedule / confirm appointments Patient hospitalized from (07/02-07/04) Okay to return to work once cleared by Dr. Aguilar in office. Recommend bland soft food diet for next 2-3 days then can slowly advance to r egular diet as tolerated. Avoid foods high in fat. No heavy lifting > 10 lbs for 4-6 weeks or otherwise instructed by Dr. Aguilar Do no submerge wound underwater. Okay to shower with running water. Physical Exam: GEN: Alert, oriented, NAD CV: normal rate & rhythm, no edema Pulm: Nonlabored respirations on room air, clear bilaterally ABD: Soft, minimal RUQ tenderness, dressing in place c/d/i Vital Signs/Physical Exam: Temp Pulse Resp BP Pulse Ox 98.2 F 97 H 16 111/70 94 07/04/24 08:00 07/04/24 08:00 07/04/24 08:00 07/04/24 08:00 07/04/24 08:00 Laboratory Data at Discharge: WBC 7.80 thou/uL (4.3-10.9) 07/04/24 07:46 Hgb 13.1 g/dL (13.6-17.9) L D 07/04/24 07:46 Hct 37.9 % (39.6-49.0) L 07/04/24 07:46 Plt Count 170 thou/uL (152-406) 07/04/24 07:46 Sodium 139 mEq/L (136-145) 07/04/24 07:46 Potassium Cancelled 07/04/24 11:30 BUN 10 mg/dL (7-18) 07/04/24 07:46 Creatinine 0.82 mg/dL (0.70-1.30) 07/04/24 07:46 Glucose 107 mg/dL (74-106) H 07/04/24 07:46 Total Bilirubin 0.8 mg/dL (0.2-1.0) 07/04/24 07:46 AST 49 U/L (15-37) H 07/04/24 07:46 ALT 112 U/L (16-61) H 07/04/24 07:46 Alkaline Phosphatase 46 U/L (45-117) 07/04/24 07:46 Lipase 34 U/L (13-75) 07/02/24 17:00 Home Medications: Amox/Clavulanate [Augmentin 875-125 Tab] 1 tab PO BID 4 Days #8 tab 07/04/24 Hydrocodone 5/APAP 325 [[place] 5/325*] 1 tab PO Q6H PRN #15 tab 07/04/24 New Medications: Amox/Clavulanate [Augmentin 875-125 Tab] 1 tab PO BID 4 Days #8 tab Hydrocodone 5/APAP 325 [[place] 5/325*] 1 tab PO Q6H PRN #15 tab PRN Reason: Pain Scale 5-7 (Moderate) Physician Discharge Instructions: Physician discharge instructions: Patient presented with epigastric / RUQ pain associated with nausea/vomiting for ~1 day secondary to acute calculous cholecystitis. He was evaluated by Dr. Aguilar, general surgeon, and underwent laparoscopic cholecystectomy with IGC. Found to have distended hydropic gallbladder with significant adhesions. Patient did well post-operatively, was feeling better, pain improving, nausea/vomiting resolved, and was deemed stable for discharge. Patient is to complete 4 more days of Augmentin on discharge for a total of 5 days. Follow up with Dr. Aguilar in office on as previously discussed for further management. LFTs were noted to be mildly elevated post-operatively. Suspect reactive to recent surgery. Advised to repeat blood work in ~1 week to ensure resolution/improvement of LFTs. LFTs on admission -> discharge: AST 16 -> 49 ALT 22 -> 112 T.bili and ALKPhos remained within normal limits throughout hospitalization. Medications: Augmentin x4 more days [place] 5/325 as needed for pain Follow up: PCP 3-[address] Aguilar in office on as previously discussed. please call to schedule / confirm appointments Patient hospitalized from (07/02-07/04) Okay to return to work once cleared by Dr. Aguilar in office. Recommend bland soft food diet for next 2-3 days then can slowly advance to regular diet as tolerated. Avoid foods high in fat. No heavy lifting > 10 lbs for 4-6 weeks or otherwise instructed by Dr. Aguilar Do no submerge wound underwater. Okay to shower with running water. Diet: Harvey Activity: No lifting more than 10 lbs Followup: Meng Aguilar MD [ACTIVE - CAN ADMIT] - OOT,OOT [Primary Care Provider] - Time spent managing pt's care (in minutes): 45
[2024-07-04 12:07] VITALS: BP 118/79; TEMP 98.5
[2024-07-04] MEDS: POTASSIUM 25 MEQ EFFERV TAB PO ONE (12:59)
== END 2024-07-04 14:50 | disposition home or self-care (01) | DRG 419 ==
LOC: ER 16:15 → ERHOLD 18:21 → 3RD-ICU 07-03 00:10 → 2ND 07-03 12:09 → OBSVTOIN 07-03 13:59
PROVIDERS: ADMIT Internal Medicine; ATTEND Hospitalist
PROC: BF121ZZ Fluoroscopy of Gallbladder using Low Osmolar Contrast (ICD-10-PCS; 2024-07-03)
PROC: 0FT44ZZ Resection of Gallbladder, Percutaneous Endoscopic Approach (ICD-10-PCS; principal; 2024-07-03 11:45)
DX: K80.00 Calculus of gallbladder with acute cholecystitis without obstruction (principal); K21.9 Gastro-esophageal reflux disease without esophagitis; J30.2 Other seasonal allergic rhinitis; K82.8 Other specified diseases of gallbladder
CPT/HCPCS: 36415; 74177; 76705; 80048; 80053; 81001; 83605; 83690; 85025; 88304; 96361; 96365; 96375; 99285; G0378; J1100; J1170; J1650; J2001; J2250; J2270; J2405; J2470; J2543; J2704; J3010; J7030; J7120; J7799; Q9967